=== PATIENT | female | born 1965 | race American Indian/Alaskan Native ===

== ENCOUNTER 2016-10-22 17:10 | Inpatient (IN) | payer BC ==
[2016-10-22 17:17] VITALS: BMI 30.4
[2016-10-22] MEDS ORDERED: Sodium Chloride 0.9% 1,000 ML IV STA (17:38)
[2016-10-22] MEDS ORDERED: Morphine 4 mg/ml ISec IVP STA (17:38)
[2016-10-22 18:14] LABS: ADD MANUAL DIFF? NO
--- NOTE | 2016-10-22 18:26 | ED PDOC ---
Arrival/HPI - General Chief Complaint: Abdominal Pain Time Seen by Provider: 10/22/16 17:22 Historian: Patient - History of Present Illness Narrative History of Present Illness (Text): 10/22/16 18:21 51yo female with PMHx of Diabetes and migraine headache referred to ED by her PMD for 2days history of LLQ abdominal pain associated nausea and constipation. States pain started yesterday. Her last BM was 3days ago. Saw her PMD today and was referred to ED. She reports temp of 101 while she was at her PMD's office this afternoon. Did not take any medication for pain. Denies melena, hematemesis , vomiting, diarrhea, chest pain, urinary symptoms, sick contact. Past Medical History - Provider Review Nursing Documentation Reviewed: Yes - Infectious Disease Hx of Infectious Diseases: None - Reproductive Menopause: Yes - Cardiac Hx Cardiac Disorders: Yes Hx Hypertension: Yes - Pulmonary Hx Respiratory Disorders: No - Neurological Hx Neurological Disorder: No - HEENT Hx HEENT Disorder: No - Renal Hx Renal Disorder: No - Endocrine/Metabolic Hx Endocrine Disorders: Yes Hx Diabetes Mellitus Type 1: Yes - Hematological/Oncological Hx Blood Disorders: No - Integumentary Hx Dermatological Disorder: No - Musculoskeletal/Rheumatological Hx Musculoskeletal Disorders: No - Gastrointestinal Hx Gastrointestinal Disorders: No - Genitourinary/Gynecological Hx Genitourinary Disorders: No - Psychiatric Hx Psychophysiologic Disorder: No Hx Substance Use: No - Surgical History Hx Cholecystectomy: Yes - Anesthesia Hx Anesthesia: Yes Hx Anesthesia Reactions: No Family/Social History - Physician Review Nursing Documentation Reviewed: Yes Family/Social History: Unknown Family HX Smoking Status: Never Smoked Hx Alcohol Use: No Hx Substance Use: No Hx Substance Use Treatment: No Allergies/Home Meds Allergies/Adverse Reactions: Allergies No Known Allergies Allergy (Verified 10/22/16 17:16) Home Medications: Home Meds Medication Instructions Recorded Confirmed Losartan [Cozaar] 100 mg PO DAILY 10/22/16 10/22/16 MetFORMIN [glucoPHAGE] 1,000 mg PO DAILY 10/22/16 10/22/16 Review of Systems - Physician Review All systems were reviewed & negative as marked: Yes - Review of Systems Constitutional: Normal Eyes: Normal ENT: Normal Respiratory: Normal Cardiovascular: Normal Gastrointestinal: Abdominal Pain, Constipation, Nausea. absent: Diarrhea, Vomiting, Hematochezia, Hematemesis Genitourinary Female: Normal Musculoskeletal: Normal Skin: Normal Neurological: Normal Endocrine: Normal Hemo/Lymphatic: Normal Psychiatric: Normal Physical Exam Vital Signs Reviewed: Yes Vital Signs Temp Pulse Resp BP Pulse Ox 10/22/16 23:01 99.5 F 100 H 18 134/81 98 10/22/16 17:20 98.9 F 110 H 20 120/84 100 Temperature: Afebrile Blood Pressure: Normal Pulse: Tachycardic Respiratory Rate: Normal Appearance: Positive for: Well-Appearing, Non-Toxic, Comfortable Pain Distress: None Mental Status: Positive for: Alert and Oriented X 3 - Systems Exam Head: Present: Atraumatic, Normocephalic Pupils: Present: PERRL Extroacular Muscles: Present: EOMI Conjunctiva: Present: Normal Mouth: Present: Moist Mucous Membranes Neck: Present: Normal Range of Motion Respiratory/Chest: Present: Clear to Auscultation, Good Air Exchange. No: Respiratory Distress, Accessory Muscle Use Cardiovascular: Present: Regular Rate and Rhythm, Normal S1, S2. No: Murmurs Abdomen: Present: Tenderness (LLQ abdominal tenderness), Normal Bowel Sounds, Guarding, Other (soft). No: Distention, Peritoneal Signs, Rebound, McBurney's Point Tender, Rovsing's Sign Present Back: Present: Normal Inspection Upper Extremity: Present: Normal Inspection. No: Cyanosis, Edema Lower Extremity: Present: Normal Inspection. No: Edema Neurological: Present: GCS=15, CN II-XII Intact, Speech Normal Skin: Present: Warm, Dry, Normal Color. No: Rashes Psychiatric: Present: Alert, Oriented x 3, Normal Insight, Normal Concentration Medical Decision Making ED Course and Treatment: 10/23/16 00:39 Pt was seen in ED for stated history. She was hemodynamically stable in ED. Her pain was controlled in ED. Lab was unremarkable Abdominal CT IMPRESSION: 1. Findings compatible with acute diverticulitis of descending colon with equivocal localized perforation. Recommend endoscopy following resolution. Zosyn and flagyl was ordered. Case was DW Dr. Osei who was covering Dr. zhou and he accepted pt. He requested [employer] baby registry sales consultant to be consult. The Resident was notified founder president and ceo was also notified. Result and plan and was DW the pt and she agreed - Lab Interpretations Lab Results: 10/22/16 18:05 10/22/16 18:05 Lab Results 10/22/16 19:29: Urine Color Yellow, Urine Appearance Sl cloudy, Urine pH 7.0, Ur Specific [place] <= 1.005, Urine Protein Negative, Urine Glucose (UA) 100 H, Urine Ketones 15 H, Urine Blood Negative, Urine Nitrate Negative, Urine Bilirubin Negative, Urine Urobilinogen 0.2, Ur Leukocyte Esterase Trace H, Urine RBC 0 - 2, Urine WBC 1 - 3, Ur Epithelial Cells 1 - 3 10/22/16 18:05: Sodium 139, Potassium 4.4, Chloride 101, Carbon Dioxide 29, Anion Gap 13, BUN 8, Creatinine 0.6, Est GFR ( Amer) > 60, Est GFR (Non- Af Amer) > 60, Random Glucose 195 H, Calcium 9.7, Total Bilirubin 0.8, AST 22, ALT 30, Alkaline Phosphatase 103, Total Protein 7.7, Albumin 4.3, Globulin 3.4, Albumin/Globulin Ratio 1.3, Lipase 51 10/22/16 18:05: PT 11.3, INR 1.05, APTT 28.8 10/22/16 18:05: WBC 8.7 D, RBC 4.58, Hgb 13.5, Hct 39.2, MCV 85.6, MCH 29.5, MCHC 34.4, RDW 12.4, Plt Count 277, MPV 9.8, Gran % 65.9, Lymph % (Auto) 27.7, [place] % (Auto) 5.9, Eos % (Auto) 0.2 L, Baso % (Auto) 0.3, Gran # 5.75, Lymph # 2.4, [place] # 0.5, Eos # 0.0, Baso # 0.03 10/22/16 17:55: POC Glucose (mg/dL) 308 H - RAD Interpretation Radiology Orders: 10/22/16 17:38 ABD & PELVIS W/O PO OR IV CONT [CT] Stat - Medication Orders Current Medication Orders: Famotidine (Pepcid) 20 mg IVP DAILY NAINA Hydromorphone HCl (Dilaudid) 1 mg IVP Q4H PRN PRN Reason: Pain, moderate (4-7) Sodium Chloride (Sodium Chloride 0.9%) 1,000 mls @ 150 mls/hr IV .Q6H40M NAINA Last Admin: 10/22/16 23:34 Dose: 150 mls/hr Metronidazole (Flagyl) 500 mg in 100 mls @ 100 mls/hr IVPB Q8 NAINA PRN Reason: Protocol Ceftriaxone Sodium (Rocephin 2 Gm Ivpb) 2 gm in 100 mls @ 100 mls/hr IVPB DAILY NAINA PRN Reason: Protocol Insulin Human Regular (Humulin R Low) 0 units SC ACHS NAINA PRN Reason: Protocol Losartan Potassium (Cozaar) 100 mg PO DAILY [facility] Discontinued Medications Famotidine (Pepcid) 20 mg IVP STAT STA Stop: 10/22/16 17:39 Last Admin: 10/22/16 18:09 Dose: 20 mg Sodium Chloride (Sodium Chloride 0.9%) 1,000 mls @ 1,000 mls/hr IV .Q1H STA Stop: 10/22/16 18:37 Last Admin: 10/22/16 18:09 Dose: 1,000 mls/hr Metronidazole (Flagyl) 500 mg in 100 mls @ 100 mls/hr IVPB STAT STA PRN Reason: Protocol Stop: 10/22/16 22:43 Last Admin: 10/22/16 23:33 Dose: 100 mls/hr Piperacillin Sod/Tazobactam Sod (Zosyn 3.375 In Ns 100ml) 100 mls @ 200 mls/hr IVPB STAT STA PRN Reason: Protocol Stop: 10/22/16 22:12 Last Admin: 10/22/16 22:12 Dose: 200 mls/hr Sodium Chloride (Sodium Chloride 0.9%) 1,000 mls @ 100 mls/hr IV .Q10H [facility] Morphine Sulfate (Morphine) 4 mg IVP STAT STA Stop: 10/22/16 17:39 Last Admin: 10/22/16 18:09 Dose: 4 mg Re-Assess: [facility] Pain Assessment Document 10/22/16 19:09 [place] (Rec: 10/22/16 22:13 [id number]) Pain Reassessment Is this a pain reassessment? Yes Sleep Is patient sleeping during reassessment? No Presence of Pain Presence of Pain No Pain Scale Used Pain Scale Used Numeric Ondansetron HCl (Zofran Inj) 4 mg IVP STAT STA Stop: 10/22/16 17:39 Last Admin: 10/22/16 18:09 Dose: 4 mg Disposition/Present on Arrival - Present on Arrival Any Indicators Present on Arrival: No History of DVT/PE: No History of Uncontrolled Diabetes: No Urinary Catheter: No History of Decub. Ulcer: No History Surgical Site Infection Following: None - Disposition Have Diagnosis and Disposition been Completed?: Yes Diagnosis: Diverticulitis Disposition: HOSPITALIZED Disposition Time: 21:30 Patient Problems: Current Active Problems Problem Status Onset Diverticulitis Acute Condition: FAIR
[2016-10-22 18:33] LABS: BASO % 0.3 % (0.0-3.0); EOS % 0.2 % (1.5-5.0); GRAN # 5.75 (1.4-6.5); GRAN % 65.9 % (50.0-68.0); HEMATOCRIT 39.2 % (36.0-48.0); LYMPH % 27.7 % (22.0-35.0); MEAN CELL VOLUME 85.6 fL (80.0-105.0); MEAN CORPUSCULAR HEMOGLOBIN 29.5 pg (25.0-35.0); MEAN CORPUSCULAR HGB CONC 34.4 g/dl (31.0-37.0); MEAN PLATELET VOLUME 9.8 fl (7.0-11.0); MONO % 5.9 % (1.0-6.0); PLATELET COUNT 277 10^3/uL (120.0-450.0); RED CELL DISTRIBUTION WIDTH 12.4 % (11.5-14.5); WHITE BLOOD COUNT 8.7 10^3/ul (4.5-11.0)
[2016-10-22 18:34] LABS: BASO # 0.03 K/mm3 (0.0-2.0); LYMPH # 2.4 (1.2-3.4); MONO # 0.5 (0.1-0.6)
[2016-10-22 18:37] LABS: ALB/GLOB RATIO 1.3 (1.1-1.8); ALKALINE PHOSPHATASE 103 U/L (38-133); ALT/SGPT 30 U/L (7-56); AST/SGOT 22 U/L (15-39); BILIRUBIN,TOTAL 0.8 mg/dL (0.2-1.3); BLOOD UREA NITROGEN 8 mg/dL (7-21); CALCIUM 9.7 mg/dL (8.4-10.5); CARBON DIOXIDE 29 mmol/L (21-33); CHLORIDE 101 mmol/L (98-107); GFR AFRICAN-AMERICAN > 60; GLUCOSE,RANDOM 195 mg/dL (70-110); LIPASE 51 U/L (23-300); POTASSIUM 4.4 mmol/L (3.6-5.0); SODIUM 139 mmol/L (132-148); TOTAL PROTEIN 7.7 g/dL (5.8-8.3)
[2016-10-22 18:46] LABS: INR 1.05 (0.93-1.08); PARTIAL THROMBOPLASTIN TIME 28.8 Seconds (23.7-30.8)
[2016-10-22 19:40] LABS: URINE BILIRUBIN NEGATIVE (NEGATIVE); URINE BLOOD NEGATIVE (NEGATIVE); URINE GLUCOSE (UA) 100 mg/dL (NEGATIVE); URINE KETONE 15 mg/dL (NEGATIVE); URINE LEUKOCYTE ESTERASE TRACE Leu/uL (NEGATIVE); URINE PROTEIN NEGATIVE mg/dL (<30 mg/dL); URINE UROBILINOGEN 0.2 E.U./dL (<1 E.U./dL)
[2016-10-22 19:44] LABS: URINE APPEARANCE SL CLOUDY (CLEAR); URINE COLOR YELLOW (YELLOW)
[2016-10-22 20:13] LABS: URINE RBC 0 - 2 /hpf (0-2)
--- NOTE | 2016-10-22 21:35 | CT ---
EXAM: CT Abdomen and Pelvis Without Intravenous Contrast CLINICAL HISTORY: 51 years old, female; Pain; Abdominal pain; Acute TECHNIQUE: Axial computed tomography images of the abdomen and pelvis without intravenous contrast. This CT exam was performed using one or more of the following dose reduction techniques: automated exposure control, adjustment of the mA and/or kV according to patient size, and/or use of iterative reconstruction technique. Coronal and sagittal reformatted images were created and reviewed. COMPARISON: CT - ABD PELVIS W/O PO OR IV CONT 05/15/2015 11:33:32 PM FINDINGS: Limitations: Lack of intravenous contrast. Lower thorax: No acute findings. ABDOMEN: Liver: Unremarkable. Gallbladder and bile ducts: Cholecystectomy. No ductal dilation. Pancreas: Unremarkable. No ductal dilation. Spleen: No splenomegaly. Adrenals: No mass. Kidneys and ureters: No renal calculi. No hydronephrosis. Stomach and bowel: Few scattered diverticula within colon. Mild mural thickening of short segment of descending colon. Moderate stranding within adjacent fat. Few tiny foci of air within or immediately adjacent to inflamed diverticulum(axial image 103-104). No obstruction. Appendix: Normal caliber. No inflammation. PELVIS: Bladder: Unremarkable. No stones. Reproductive: Unremarkable as visualized. ABDOMEN and PELVIS: Intraperitoneal space: Trace free fluid within pelvis. See above. Bones/joints: No acute fracture. Soft tissues: Unremarkable. Vasculature: Mild varices within LEFT upper quadrant. No abdominal aortic aneurysm. Lymph nodes: No pathologically enlarged lymph nodes. IMPRESSION: 1. Findings compatible with acute diverticulitis of descending colon with equivocal localized perforation. Recommend endoscopy following resolution. 2. Incidental/non-acute findings are described above.
[2016-10-22] MEDS ORDERED: Piperacillin/Tazobact 3.375 gm 100 ML IVPB STA (21:43)
[2016-10-22] MEDS ORDERED: metroNIDAZOLE IV 500 mg/100 ml 500 MG/100 ML BAG IVPB STA (21:44)
--- NOTE | 2016-10-22 22:39 | CP.PCM.CON ---
History of Present Illness - History of Present Illness History of Present Illness: General Surgery Dr. Jeffries HPI: 51 y/o F w/ PMHx of HTN, DM2 presents to the ED w/ c/o LLQ abd pain. Pt states pain began yesterday afternoon after spending the day in the car. Pt reports feeling like she was punched in the stomach when getting out the car. Pain worsened throughout the night, was unable to get comfortable. Pt saw PMD today and was told to come to the ED for evaluation. Pt reports subjective fever and states temp was elevated in PMD office. Nothing makes pain better or worse. Pain has improved since arriving in ED, currently 10/09. Pt states last BM was Friday and reports normally going daily or BID. denies N/V, D/C, melena, or hematochezia. (+) Headache. (-) CP, SOB, numbness/tingling, weakness, easy bruising/bleeding. Pt has not yet had a colonoscopy. PMHx: see above Meds: metformin 1000mg daily NKDA PSHx: [place] SHx: denies tobacco, EtOH, drugs FHx: non-contributory Review of Systems - Review of Systems All systems: reviewed and no additional remarkable complaints except (see HPI) Past Patient History - Infectious Disease Hx of Infectious Diseases: None - Past Social History Smoking Status: Never Smoked - CARDIAC Hx Cardiac Disorders: Yes Hx Hypertension: Yes - PULMONARY Hx Respiratory Disorders: No - NEUROLOGICAL Hx Neurological Disorder: No - HEENT Hx HEENT Problems: No - RENAL Hx Chronic Kidney Disease: No - ENDOCRINE/METABOLIC Hx Endocrine Disorders: Yes Hx Diabetes Mellitus Type 1: Yes - HEMATOLOGICAL/ONCOLOGICAL Hx Blood Disorders: No - INTEGUMENTARY Hx Dermatological Problems: No - MUSCULOSKELETAL/RHEUMATOLOGICAL Hx Musculoskeletal Disorders: No - GASTROINTESTINAL Hx Gastrointestinal Disorders: No - GENITOURINARY/GYNECOLOGICAL Hx Genitourinary Disorders: No - PSYCHIATRIC Hx Psychophysiologic Disorder: No Hx Substance Use: No - SURGICAL HISTORY Hx Cholecystectomy: Yes - ANESTHESIA Hx Anesthesia: Yes Hx Anesthesia Reactions: No Meds Allergies/Adverse Reactions: Allergies Allergy/AdvReac Type Severity Reaction Status Date / Time No Known Allergies Allergy Verified 10/22/16 17:16 - Medications Medications: Current Medications Metronidazole (Flagyl) 500 mg in 100 mls @ 100 mls/hr IVPB STAT STA PRN Reason: Protocol Stop: 10/22/16 22:43 Physical Exam - Constitutional Appears: Non-toxic, No Acute Distress - Head Exam Head Exam: NORMAL INSPECTION - Eye Exam Eye Exam: Normal appearance - ENT Exam ENT Exam: Mucous Membranes Moist - Respiratory Exam Respiratory Exam: NORMAL BREATHING PATTERN. absent: Accessory Muscle Use, Respiratory Distress - Cardiovascular Exam Cardiovascular Exam: Tachycardia, REGULAR RHYTHM - GI/Abdominal Exam GI & Abdominal Exam: Distended (minimal ), Soft, Tenderness (LUQ >LLQ TTP). absent: Guarding, Rebound, Rigid - Extremities Exam Extremities exam: Positive for: normal inspection. Negative for: pedal edema - Neurological Exam Neurological exam: Alert, Oriented x3 - Psychiatric Exam Psychiatric exam: Normal Affect, Normal Mood - Skin Skin Exam: Dry, Intact, Normal Color, Warm Results - Vital Signs Recent Vital Signs: Last Vital Signs Temp 98.9 F 10/22/16 17:20 Pulse 110 H 10/22/16 17:20 Resp 20 10/22/16 17:20 BP 120/84 10/22/16 17:20 Pulse Ox 100 10/22/16 17:20 - Labs Result Diagrams: 10/22/16 18:05 10/22/16 18:05 - Imaging and Cardiology CT scan - abdomen Status: Image reviewed by me, Report reviewed by me Assessment & Plan - Assessment and Plan (Free Text) Assessment: 51 y/o F w/ acute diverticulitis w/ microperf - NPO, IVF - IV Abx - Rocephin/Flagyl - pain management - anti-emetics - recommend GI consult - serial abd exams Pt discussed w/ Dr. Nesha Garcia DO PGY1
[2016-10-22] MEDS ORDERED: Sodium Chloride 0.9% 1,000 ML IV SCH (23:00)
[2016-10-22] MEDS ORDERED: Morphine 2 mg/ml ISec IVP PRN (23:05)
[2016-10-22] MEDS ORDERED: Morphine 4 mg/ml ISec IVP PRN (23:30)
[2016-10-22] MEDS: Sodium Chloride 0.9% 1,000 ML IV SCH (23:34)
[2016-10-23] MEDS ORDERED: Piperacillin/Tazobact 3.375 gm 100 ML IVPB SCH
[2016-10-23] MEDS ORDERED: HYDROmorphone 1 mg/ml ISec IVP PRN (00:01)
--- NOTE | 2016-10-23 03:17 | CP.PCM.HP ---
<Brea Bales - Last Filed: 10/23/16 07:11> History of Present Illness - History of Present Illness History of Present Illness: PGY-1 H&P 51 yo female with PMH of HTN, DM, migraine headaches presented to ED with history of LLQ abdominal pain adn nausea. Patient states that yesterday she felt a sharp, sudden pain in her LLQ. She states that the pain was constant and she was not able to find a comfortable position. She went to her PMDs office, there she was told that she had fever of 101 and advised to go to the hospital. Patient states that this has never happened to her before. Patient states she is constipated, her last BM was 3 days ago. She denies any nausea or vomiting. Patient also reports headache. She denies weight loss, chest pain, sob, cough, urinary symptoms, melena. Denies previous colonoscopy or EGD. PMH: HTN, DM, migraine headaches PSH: cholecystectomy social hx: denies smoking, alcohol use, illicit drug use family hx: denies allergy: NKDA Home Meds: metformin and losartin PMD: Sweeti Bryan Present on Admission - Present on Admission Any Indicators Present on Admission: No Review of Systems - Constitutional Constitutional: Headache. absent: Fever, Weight Gain, Weight Loss - EENT Eyes: absent: Change in Vision Nose/Mouth/Throat: absent: Nasal Congestion, Sore Throat - Cardiovascular Cardiovascular: absent: Chest Pain, Dyspnea, Palpitations - Respiratory Respiratory: absent: Cough, Dyspnea - Gastrointestinal Gastrointestinal: Abdominal Pain (LLQ), Constipation. absent: Diarrhea, Nausea , Vomiting - Genitourinary Genitourinary: absent: Difficulty Urinating, Dysuria - Musculoskeletal Musculoskeletal: absent: Arthralgias, Muscle Weakness, Myalgias, Numbness, Tingling - Integumentary Integumentary: absent: Rash, Skin Ulcer, Wounds - Neurological Neurological: absent: Dizziness, Numbness, Tingling, Weakness - Hematologic/Lymphatic Hematologic: absent: Easy Bleeding, Easy Bruising Past Patient History - Infectious Disease Hx of Infectious Diseases: None - Past Social History Smoking Status: Never Smoked Alcohol: None Drugs: Denies - CARDIAC Hx Cardiac Disorders: Yes Hx Hypertension: Yes - PULMONARY Hx Respiratory Disorders: No - NEUROLOGICAL Hx Neurological Disorder: No - HEENT Hx HEENT Problems: No - RENAL Hx Chronic Kidney Disease: No - ENDOCRINE/METABOLIC Hx Endocrine Disorders: Yes Hx Diabetes Mellitus Type 1: Yes - HEMATOLOGICAL/ONCOLOGICAL Hx Blood Disorders: No - INTEGUMENTARY Hx Dermatological Problems: No - MUSCULOSKELETAL/RHEUMATOLOGICAL Hx Musculoskeletal Disorders: No - GASTROINTESTINAL Hx Gastrointestinal Disorders: No - GENITOURINARY/GYNECOLOGICAL Hx Genitourinary Disorders: No - PSYCHIATRIC Hx Psychophysiologic Disorder: No Hx Substance Use: No - SURGICAL HISTORY Hx Cholecystectomy: Yes - ANESTHESIA Hx Anesthesia: Yes Hx Anesthesia Reactions: No Meds Allergies/Adverse Reactions: Allergies Allergy/AdvReac Type Severity Reaction Status Date / Time No Known Allergies Allergy Verified 10/22/16 17:16 Physical Exam - Constitutional Appears: Well, No Acute Distress - Head Exam Head Exam: ATRAUMATIC, NORMOCEPHALIC - Eye Exam Eye Exam: Normal appearance - ENT Exam ENT Exam: Mucous Membranes Moist - Respiratory Exam Respiratory Exam: Clear to Auscultation Bilateral, NORMAL BREATHING PATTERN. absent: Rhonchi, Wheezes, Respiratory Distress - Cardiovascular Exam Cardiovascular Exam: REGULAR RHYTHM, +S1, +S2. absent: Tachycardia, Diastolic murmur, Systolic Murmur - GI/Abdominal Exam GI & Abdominal Exam: Normal Bowel Sounds, Soft, Tenderness (LLQ). absent: Distended, Firm, Guarding, Hernia - Extremities Exam Extremities exam: Positive for: normal inspection. Negative for: pedal edema - Neurological Exam Neurological exam: Alert, Oriented x3 - Skin Skin Exam: Dry, Intact, Normal Color, Warm Results - Vital Signs Recent Vital Signs: Last Vital Signs Temp 99.5 F 10/22/16 23:01 Pulse 100 H 10/22/16 23:01 Resp 18 10/22/16 23:01 BP 134/81 10/22/16 23:01 Pulse Ox 98 10/22/16 23:01 - Labs Result Diagrams: 10/22/16 18:05 10/22/16 18:05 Labs: Laboratory Results - last 24 hr 10/22/16 23:31 POC Glucose (mg/dL) 222 H Assessment & Plan - Assessment and Plan (Free Text) Assessment: 51 yo female with PMH of HTN, DM, migraine headaches presented to ED with diverticulitis and localized perforation. CT abd showed acute diverticulitis of descending colon with localized perforation. Plan: 1. acute diverticulitis with perforations - CT abd showed acute diverticulitis of descending colon with localized perforation - surgery consulted, Dr. Plummer - GI consulted, Dr. Crouch - NPO - zosyn and flagyl given in ED - cont Rocephin and flagyl - IVF, ns @150 - blood and urine cx - pain management 2. HTN - cont home medication losartan - cont to monitor 3. DM - hold metformin - ISSS- low - fingersticks ACHS ppx GI- pepcid DVT- SCDs <Chepe Osei - Last Filed: 11/13/16 15:01> Results - Vital Signs Recent Vital Signs: Last Vital Signs Temp 97.6 F 10/24/16 08:00 Pulse 90 10/24/16 08:00 Resp 18 10/24/16 08:00 BP 112/73 10/24/16 08:00 Pulse Ox 99 10/24/16 08:00 - Labs Result Diagrams: 10/24/16 07:30 10/24/16 07:30 Attending/Attestation - Attestation I have personally seen and examined this patient.: Yes I have fully participated in the care of the patient.: Yes I have reviewed all pertinent clinical information: Yes Notes (Text): 11/13/16 15:01 Medical record note made by the resident after discussion with my direction and input after the patient was personally seen and examined by me. I have reviewed the chart and agree that the record accurately reflects by personal performance of the history, physical exam, data review, and medical decision-making, in the course for the patient. I have also personally directed the plan of care.
[2016-10-23] MEDS: metroNIDAZOLE IV 500 mg/100 ml 500 MG/100 ML BAG IVPB SCH ×3 (05:56→22:20)
[2016-10-23] MEDS: Sodium Chloride 0.9% 1,000 ML IV SCH ×2 (05:57→18:50)
[2016-10-23 08:22] LABS: ADD MANUAL DIFF? NO
[2016-10-23 08:28] LABS: BASO # 0.02 K/mm3 (0.0-2.0); BASO % 0.3 % (0.0-3.0); EOS % 0.6 % (1.5-5.0); GRAN # 4.38 (1.4-6.5); GRAN % 67.3 % (50.0-68.0); HEMATOCRIT 37.6 % (36.0-48.0); LYMPH # 1.7 (1.2-3.4); LYMPH % 26.4 % (22.0-35.0); MEAN CELL VOLUME 85.6 fL (80.0-105.0); MEAN CORPUSCULAR HEMOGLOBIN 28.9 pg (25.0-35.0); MEAN CORPUSCULAR HGB CONC 33.8 g/dl (31.0-37.0); MEAN PLATELET VOLUME 9.4 fl (7.0-11.0); MONO # 0.4 (0.1-0.6); MONO % 5.4 % (1.0-6.0); PLATELET COUNT 246 10^3/uL (120.0-450.0); RED CELL DISTRIBUTION WIDTH 12.4 % (11.5-14.5); WHITE BLOOD COUNT 6.5 10^3/ul (4.5-11.0)
[2016-10-23 08:45] LABS: ALB/GLOB RATIO 1.2 (1.1-1.8); ALKALINE PHOSPHATASE 165 U/L (38-133); ALT/SGPT 529 U/L (7-56); AST/SGOT 429 U/L (15-39); BILIRUBIN,TOTAL 0.9 mg/dL (0.2-1.3); BLOOD UREA NITROGEN 7 mg/dL (7-21); CARBON DIOXIDE 26 mmol/L (21-33); CHLORIDE 104 mmol/L (95-110); GFR AFRICAN-AMERICAN > 60; GLUCOSE,RANDOM 177 mg/dL (70-110); POTASSIUM 3.9 mmol/L (3.6-5.0); SODIUM 138 mmol/L (132-148); TOTAL PROTEIN 6.8 g/dL (5.8-8.3)
[2016-10-23] MEDS: Insulin Reg-LOW-Coverage SC SCH ×3 (08:58→19:15)
[2016-10-23] MEDS ORDERED: cefTRIAXone 2 GM IN NS 2 GM/100 ML BAG IVPB SCH (10:00)
[2016-10-23] MEDS ORDERED: cefTRIAXone 1 gm 1 GM/100 ML BAG IVPB SCH (10:00)
--- NOTE | 2016-10-23 10:05 | CARD ---
APPROVED REPORT EKG Measurement Heart [id number] <Conclusion> Sinus rhythm with premature supraventricular complexes Otherwise normal ECG
--- NOTE | 2016-10-23 10:13 | CP.PCM.CON ---
<Lesly Davila - Last Filed: 10/23/16 10:10> History of Present Illness - History of Present Illness History of Present Illness: GI consult for Dr. Crouch 1 yo female with PMH of HTN, DM, migraine headaches presented to ED with history of LLQ abdominal pain. Patient states that yesterday she felt a sharp, sudden pain in her LLQ. She states that the pain was constant and she was not able to find a comfortable position. She went to her PMDs office, there she was told that she had fever of 101 and advised to go to the hospital. Patient states that this has never happened to her before. Patient states she is constipated, her last BM was 3 days ago. She denies any nausea or vomiting. Patient also reports headache. She denies diarrhea, weight loss, chest pain, sob , cough, urinary symptoms, melena, hematemesis, hematochezia. Denies previous colonoscopy or EGD. CT shows Descending colon diverticulitits and LFT today was elevated PMH: HTN, DM, migraine headaches PSH: cholecystectomy social hx: denies smoking, alcohol use, illicit drug use family hx: denies allergy: NKDA Home Meds: metformin and losartin PMD: Arnaldo Adams Review of Systems - Review of Systems Review of Systems: See HPI Past Patient History - Infectious Disease Hx of Infectious Diseases: None - Past Social History Smoking Status: Never Smoked Alcohol: None Drugs: Denies - CARDIAC Hx Cardiac Disorders: Yes Hx Hypertension: Yes - PULMONARY Hx Respiratory Disorders: No - NEUROLOGICAL Hx Neurological Disorder: No - HEENT Hx HEENT Problems: No - RENAL Hx Chronic Kidney Disease: No - ENDOCRINE/METABOLIC Hx Endocrine Disorders: Yes Hx Diabetes Mellitus Type 1: Yes - HEMATOLOGICAL/ONCOLOGICAL Hx Blood Disorders: No - INTEGUMENTARY Hx Dermatological Problems: No - MUSCULOSKELETAL/RHEUMATOLOGICAL Hx Musculoskeletal Disorders: No - GASTROINTESTINAL Hx Gastrointestinal Disorders: No - GENITOURINARY/GYNECOLOGICAL Hx Genitourinary Disorders: No - PSYCHIATRIC Hx Psychophysiologic Disorder: No Hx Substance Use: No - SURGICAL HISTORY Hx Cholecystectomy: Yes - ANESTHESIA Hx Anesthesia: Yes Hx Anesthesia Reactions: No Meds Home Medications: Home Medication List Medication Instructions Recorded Confirmed Type Ciprofloxacin [Cipro] 500 mg PO Q12 #14 tab 10/24/16 Rx metroNIDAZOLE [Flagyl] 500 mg PO Q8 #21 tab 10/24/16 Rx Allergies/Adverse Reactions: Allergies Allergy/AdvReac Type Severity Reaction Status Date / Time No Known Allergies Allergy Verified 10/22/16 17:16 - Medications Medications: Current Medications Famotidine (Pepcid) 20 mg IVP DAILY [facility] Hydromorphone HCl (Dilaudid) 1 mg IVP Q4H PRN PRN Reason: Pain, moderate (4-7) Sodium Chloride (Sodium Chloride 0.9%) 1,000 mls @ 150 mls/hr IV .Q6H40M [facility] Last Admin: 10/23/16 05:57 Dose: 150 mls/hr Metronidazole (Flagyl) 500 mg in 100 mls @ 100 mls/hr IVPB Q8 [facility] PRN Reason: Protocol Last Admin: 10/23/16 05:56 Dose: 100 mls/hr Ceftriaxone Sodium (Rocephin 1 Gram Ivpb) 1 gm in 100 mls @ 100 mls/hr IVPB DAILY [facility] PRN Reason: Protocol Insulin Human Regular (Humulin R Low) 0 units SC ACHS [facility] PRN Reason: Protocol Last Admin: 10/23/16 08:58 Dose: Not Given Losartan Potassium (Cozaar) 100 mg PO DAILY [facility] Physical Exam - Constitutional Appears: No Acute Distress - Head Exam Head Exam: ATRAUMATIC, NORMAL INSPECTION, NORMOCEPHALIC - Eye Exam Eye Exam: EOMI, Normal appearance, PERRL Pupil Exam: NORMAL ACCOMODATION, PERRL - ENT Exam ENT Exam: Mucous Membranes Moist, Normal Exam - Neck Exam Neck exam: Positive for: Normal Inspection - Respiratory Exam Respiratory Exam: Clear to Auscultation Bilateral, NORMAL BREATHING PATTERN - Cardiovascular Exam Cardiovascular Exam: REGULAR RHYTHM - GI/Abdominal Exam GI & Abdominal Exam: Guarding, Tenderness. absent: Distended, Firm, Hernia, Mass, Rebound, Rigid, Soft Additional comments: LLQ TTP - Extremities Exam Extremities exam: Positive for: normal inspection - Back Exam Back exam: NORMAL INSPECTION - Neurological Exam Neurological exam: Alert, CN II-XII Intact, Normal Gait, Oriented x3, Reflexes Normal - Psychiatric Exam Psychiatric exam: Normal Affect, Normal Mood - Skin Skin Exam: Dry, Intact, Normal Color, Warm Results - Vital Signs Recent Vital Signs: Last Vital Signs Temp 98.8 F 10/23/16 09:13 Pulse 96 H 10/23/16 09:13 Resp 20 10/23/16 09:13 BP 127/81 10/23/16 09:13 Pulse Ox 97 10/23/16 09:13 - Labs Result Diagrams: 10/23/16 08:10 10/23/16 08:10 Labs: Laboratory Results - last 24 hr 10/22/16 10/23/16 10/23/16 23:31 07:25 08:10 WBC 6.5 D RBC 4.39 Hgb 12.7 Hct 37.6 MCV 85.6 MCH 28.9 MCHC 33.8 RDW 12.4 Plt Count 246 MPV 9.4 Gran % 67.3 Lymph % (Auto) 26.4 Haakon % (Auto) 5.4 Eos % (Auto) 0.6 L Baso % (Auto) 0.3 Gran # 4.38 Lymph # 1.7 Haakon # 0.4 Eos # 0.0 Baso # 0.02 Sodium Potassium Chloride Carbon Dioxide Anion Gap BUN Creatinine Est GFR ( Amer) Est GFR (Non-Af Amer) POC Glucose (mg/dL) 222 H 167 H Random Glucose Calcium Total Bilirubin AST ALT Alkaline Phosphatase Total Protein Albumin Globulin Albumin/Globulin Ratio 10/23/16 08:10 WBC RBC Hgb Hct MCV MCH MCHC RDW Plt Count MPV Gran % Lymph % (Auto) Haakon % (Auto) Eos % (Auto) Baso % (Auto) Gran # Lymph # Haakon # Eos # Baso # Sodium 138 Potassium 3.9 Chloride 104 Carbon Dioxide 26 Anion Gap 12 BUN 7 Creatinine 0.6 Est GFR ( Amer) > 60 Est GFR (Non-Af Amer) > 60 POC Glucose (mg/dL) Random Glucose 177 H Calcium 9.0 Total Bilirubin 0.9 AST 429 H ALT 529 H Alkaline Phosphatase 165 H Total Protein 6.8 Albumin 3.7 Globulin 3.0 Albumin/Globulin Ratio 1.2 Assessment & Plan - Assessment and Plan (Free Text) Assessment: Sigmoid/Descending colon Diverticulitis Elevated LFT CT: Acute descending colon diverticulitis -F/U [facility] US for elevated LFT -NPO -IVF -Pain control -ABX: Rocephine 1mg, Flagyl -Monitor LFT, CBC , VS -DW Dr. Crouch <WillaKoshaun V - Last Filed: 12/11/16 14:48> Results - Vital Signs Recent Vital Signs: Last Vital Signs Temp 97.6 F 10/24/16 08:00 Pulse 90 10/24/16 08:00 Resp 18 10/24/16 08:00 BP 112/73 10/24/16 08:00 Pulse Ox 99 10/24/16 08:00 - Labs Result Diagrams: 10/24/16 07:30 10/24/16 07:30 Assessment & Plan - Assessment and Plan (Free Text) Assessment: See dictated addendum
--- NOTE | 2016-10-23 10:42 | RAD ---
HISTORY: r/o free air COMPARISON: No prior. FINDINGS: BOWEL: Normal. No obstruction. No free air. BONES: Normal. OTHER FINDINGS: None. IMPRESSION: No active disease.
--- NOTE | 2016-10-23 11:31 | US ---
HISTORY: Elevated LFT COMPARISON: CT of the abdomen and pelvis without contrast performed 10/22/16 no prior ultrasound available for direct comparison. TECHNIQUE: Sonographic evaluation of the abdomen. FINDINGS: LIVER: Measures 13.5 cm in sagittal dimension and appears grossly unremarkable. No focal hepatic mass identified. The main portal vein appears patent with normal directional flow. No intrahepatic bile duct dilatation. GALLBLADDER: Cholecystectomy. COMMON BILE DUCT: Measures 4 mm. PANCREAS: Not well visualized. RIGHT KIDNEY: Measures 11.3 x 5.3 x 5.3 cm. No obstructing calculus or hydronephrosis identified. LEFT KIDNEY: Measures 11.7 x 6.1 x 5.4 cm. No obstructing calculus or hydronephrosis identified. SPLEEN: Measures approximately 8.8 cm. AORTA: Limited views appear unremarkable. IVC: Limited views appear unremarkable. OTHER FINDINGS: None. IMPRESSION: Cholecystectomy.
--- NOTE | 2016-10-23 12:51 | CP.PCM.PN ---
Subjective - Date & Time of Evaluation Date of Evaluation: 10/23/16 Time of Evaluation: 12:51 - Subjective Subjective: Gen Sx: Dr Jeffries Pt S&E. GUZMAN. Reports abdominal pain improved. Has mild nausea at times. Passing flatus. Had BM this morning. Denies fevers, chills, sob, chest pain. Objective - Vital Signs/Intake and Output Vital Signs (last 24 hours): Temp Pulse Resp BP Pulse Ox 98.8 F 96 H 20 127/81 97 10/23/16 09:13 10/23/16 09:13 10/23/16 09:13 10/23/16 09:13 10/23/16 09:13 Intake and Output: 10/23/16 10/23/16 06:59 18:59 Intake Total 0 Balance 0 - Medications Medications: Current Medications Famotidine (Pepcid) 20 mg IVP DAILY [facility] Last Admin: 10/23/16 10:47 Dose: 20 mg Hydromorphone HCl (Dilaudid) 1 mg IVP Q4H PRN PRN Reason: Pain, moderate (4-7) Sodium Chloride (Sodium Chloride 0.9%) 1,000 mls @ 150 mls/hr IV .Q6H40M [facility] Last Admin: 10/23/16 05:57 Dose: 150 mls/hr Metronidazole (Flagyl) 500 mg in 100 mls @ 100 mls/hr IVPB Q8 [facility] PRN Reason: Protocol Last Admin: 10/23/16 05:56 Dose: 100 mls/hr Ceftriaxone Sodium (Rocephin 1 Gram Ivpb) 1 gm in 100 mls @ 100 mls/hr IVPB DAILY [facility] PRN Reason: Protocol Last Admin: 10/23/16 10:47 Dose: 100 mls/hr Insulin Human Regular (Humulin R Low) 0 units SC ACHS [facility] PRN Reason: Protocol Last Admin: 10/23/16 12:26 Dose: Not Given Losartan Potassium (Cozaar) 100 mg PO DAILY [facility] Last Admin: 10/23/16 10:45 Dose: 100 mg - Labs Labs: 10/23/16 08:10 10/23/16 08:10 PT 11.3 Seconds (9.9-11.8) 10/22/16 18:05 INR 1.05 (0.93-1.08) 10/22/16 18:05 APTT 28.8 Seconds (23.7-30.8) 10/22/16 18:05 - Constitutional Appears: Non-toxic, No Acute Distress - Head Exam Head Exam: NORMAL INSPECTION - Respiratory Exam Respiratory Exam: absent: Accessory Muscle Use, Respiratory Distress - Cardiovascular Exam Cardiovascular Exam: REGULAR RHYTHM. absent: Tachycardia - GI/Abdominal Exam GI & Abdominal Exam: Soft, Tenderness (LLQ but pt states improved). absent: Distended, Firm, Guarding, Rigid - Extremities Exam Extremities Exam: absent: Calf Tenderness, Pedal Edema - Neurological Exam Neurological Exam: Alert, Awake, Oriented x3 - Psychiatric Exam Psychiatric exam: Normal Affect, Normal Mood - Skin Skin Exam: Normal Color, Warm Assessment and Plan - Assessment and Plan (Free Text) Assessment: 51F with acute diverticulitis Plan: NPO IV fluids continue abx pt has potential to develop intra-abdominal abscess d/w Dr Nesha Nevarez, PGY2
[2016-10-24] MEDS: Insulin Reg-LOW-Coverage SC SCH (02:19)
[2016-10-24] MEDS: Sodium Chloride 0.9% 1,000 ML IV SCH (02:20)
--- NOTE | 2016-10-24 03:09 | CON ---
DATE: 10/23/2016 ADDENDUM: This is an addendum to the GI consultation report dictated by Tory Robertson NP. PHYSICAL EXAMINATION: The patient does have significant tenderness in the left lower quadrant. DIAGNOSTIC IMAGING: CT scan was reviewed, showed evidence of contained microperforation. IMPRESSION: The patient never had a similar episode in the past. Never had a colonoscopy before. PLAN: The plan is to continue the antibiotics and will reduce the dose of ceftriaxone to 1 gram daily along with the Flagyl 500 mg q. 8 hourly. The patient did have elevated liver enzymes, transaminases. The etiology is unclear. Had an ultrasound scan of the abdomen and showed common bile duct measuring only 4 mm, status post cholecystectomy. Will followup the LFTs. We will request for hepatitis serology, hepatitis profile. We will consider changing the antibiotics from ceftriaxone to cefepime and Flagyl. Thank you very much for allowing us to participate in the care of the patient. Jesus Crouch MD cc: [id number] TT: 10/24/2016 03:09:03 Confirmation # [id number] Dictation # [id number] mn GEOVANNY
[2016-10-24] MEDS: metroNIDAZOLE IV 500 mg/100 ml 500 MG/100 ML BAG IVPB SCH (05:41)
--- NOTE | 2016-10-24 06:17 | CP.PCM.PN ---
Subjective - Date & Time of Evaluation Date of Evaluation: 10/24/16 Time of Evaluation: 06:14 - Subjective Subjective: Gen Sx: Dr Jeffries Pt S&E. NAEO. Resting comfortably. Denies abdominal pain at this time. Denies N/V, F/C. Passing flatus. Has not had BM since admission. Currently NPO Objective - Vital Signs/Intake and Output Vital Signs (last 24 hours): Temp Pulse Resp BP Pulse Ox 98.6 F 99 H 16 126/85 100 10/23/16 16:00 10/23/16 16:00 10/23/16 16:00 10/23/16 16:00 10/23/16 16:00 Intake and Output: 10/23/16 10/24/16 18:59 06:59 Intake Total 1250 0 Balance 1250 0 - Medications Medications: Current Medications Famotidine (Pepcid) 20 mg IVP DAILY [facility] Last Admin: 10/23/16 10:47 Dose: 20 mg Hydromorphone HCl (Dilaudid) 1 mg IVP Q4H PRN PRN Reason: Pain, moderate (4-7) Sodium Chloride (Sodium Chloride 0.9%) 1,000 mls @ 150 mls/hr IV .Q6H40M [facility] Last Admin: 10/24/16 02:20 Dose: 150 mls/hr Metronidazole (Flagyl) 500 mg in 100 mls @ 100 mls/hr IVPB Q8 [facility] PRN Reason: Protocol Last Admin: 10/24/16 05:41 Dose: 100 mls/hr Ceftriaxone Sodium (Rocephin 1 Gram Ivpb) 1 gm in 100 mls @ 100 mls/hr IVPB DAILY [facility] PRN Reason: Protocol Last Admin: 10/23/16 10:47 Dose: 100 mls/hr Insulin Human Regular (Humulin R Low) 0 units SC ACHS [facility] PRN Reason: Protocol Last Admin: 10/24/16 02:19 Dose: Not Given Losartan Potassium (Cozaar) 100 mg PO DAILY [facility] Last Admin: 10/23/16 10:45 Dose: 100 mg - Labs Labs: 10/23/16 08:10 10/23/16 08:10 PT 11.3 Seconds (9.9-11.8) 10/22/16 18:05 INR 1.05 (0.93-1.08) 10/22/16 18:05 APTT 28.8 Seconds (23.7-30.8) 10/22/16 18:05 - Constitutional Appears: Non-toxic, No Acute Distress - Head Exam Head Exam: NORMOCEPHALIC - Respiratory Exam Respiratory Exam: absent: Accessory Muscle Use, Respiratory Distress - Cardiovascular Exam Cardiovascular Exam: REGULAR RHYTHM - GI/Abdominal Exam GI & Abdominal Exam: Soft. absent: Distended, Firm, Guarding, Rigid, Tenderness , Hernia, Mass - Rectal Exam Rectal Exam: absent: Deferred - Extremities Exam Extremities Exam: absent: Pedal Edema - Neurological Exam Neurological Exam: Alert, Awake, Oriented x3 - Psychiatric Exam Psychiatric exam: Normal Affect, Normal Mood - Skin Skin Exam: Normal Color, Warm Assessment and Plan - Assessment and Plan (Free Text) Assessment: 51F with diverticulitis; resolving Plan: Pt condition improved would recommend repeat CT prior to discharge to confirm no abscess has formed will f/u labs this morning will consider placing pt on CLD pt should be d/c with 2 weeks of low-residue diet to avoid exacerbation of condition will d/w Dr Nesha Nevarez, DO, PGY2
[2016-10-24 07:32] LABS: ADD MANUAL DIFF? NO
[2016-10-24 07:41] LABS: BASO # 0.02 K/mm3 (0.0-2.0); BASO % 0.3 % (0.0-3.0); EOS # 0.1 (0.0-0.7); EOS % 1.9 % (1.5-5.0); GRAN # 4.05 (1.4-6.5); GRAN % 58.1 % (50.0-68.0); HEMATOCRIT 39.6 % (36.0-48.0); LYMPH # 2.4 (1.2-3.4); LYMPH % 33.7 % (22.0-35.0); MEAN CELL VOLUME 85.9 fL (80.0-105.0); MEAN CORPUSCULAR HEMOGLOBIN 29.1 pg (25.0-35.0); MEAN CORPUSCULAR HGB CONC 33.8 g/dl (31.0-37.0); MEAN PLATELET VOLUME 9.7 fl (7.0-11.0); MONO # 0.4 (0.1-0.6); PLATELET COUNT 291 10^3/uL (120.0-450.0); RED CELL DISTRIBUTION WIDTH 12.4 % (11.5-14.5)
[2016-10-24 07:55] LABS: ALB/GLOB RATIO 1.2 (1.1-1.8); ALKALINE PHOSPHATASE 186 U/L (38-133); ALT/SGPT 337 U/L (7-56); AST/SGOT 132 U/L (15-39); BILIRUBIN,TOTAL 0.8 mg/dL (0.2-1.3); BLOOD UREA NITROGEN 9 mg/dL (7-21); CALCIUM 9.4 mg/dL (8.4-10.5); CARBON DIOXIDE 22 mmol/L (21-33); CHLORIDE 106 mmol/L (95-110); GFR AFRICAN-AMERICAN > 60; GLUCOSE,RANDOM 116 mg/dL (70-110); POTASSIUM 4.3 mmol/L (3.6-5.0); SODIUM 140 mmol/L (132-148); TOTAL PROTEIN 7.7 g/dL (5.8-8.3)
[2016-10-24 09:37] VITALS: BP 112/73; PULSE 90; RESP 18; TEMP 97.6; O2SAT 99
--- NOTE | 2016-10-24 13:15 | CP.PCM.PN ---
<GiovanniLesly - Last Filed: 10/24/16 13:29> Subjective - Date & Time of Evaluation Date of Evaluation: 10/24/16 Time of Evaluation: 13:30 - Subjective Subjective: GI for Dr. Crouch Pt s&e. GARY. Pt tolerating CLD. Denies F/C/N/V/D/CP/SOB. flatus. No BM. Pain controlled. Objective - Vital Signs/Intake and Output Vital Signs (last 24 hours): Temp Pulse Resp BP Pulse Ox 97.6 F 90 18 112/73 99 10/24/16 08:00 10/24/16 08:00 10/24/16 08:00 10/24/16 08:00 10/24/16 08:00 Intake and Output: 10/24/16 10/24/16 06:59 18:59 Intake Total 0 Balance 0 - Medications Medications: Current Medications Famotidine (Pepcid) 20 mg IVP DAILY [facility] Last Admin: 10/23/16 10:47 Dose: 20 mg Hydromorphone HCl (Dilaudid) 1 mg IVP Q4H PRN PRN Reason: Pain, moderate (4-7) Sodium Chloride (Sodium Chloride 0.9%) 1,000 mls @ 150 mls/hr IV .Q6H40M [facility] Last Admin: 10/24/16 02:20 Dose: 150 mls/hr Metronidazole (Flagyl) 500 mg in 100 mls @ 100 mls/hr IVPB Q8 [facility] PRN Reason: Protocol Last Admin: 10/24/16 05:41 Dose: 100 mls/hr Ceftriaxone Sodium (Rocephin 1 Gram Ivpb) 1 gm in 100 mls @ 100 mls/hr IVPB DAILY [facility] PRN Reason: Protocol Last Admin: 10/23/16 10:47 Dose: 100 mls/hr Insulin Human Regular (Humulin R Low) 0 units SC ACHS [facility] PRN Reason: Protocol Last Admin: 10/24/16 02:19 Dose: Not Given Losartan Potassium (Cozaar) 100 mg PO DAILY [facility] Last Admin: 10/23/16 10:45 Dose: 100 mg - Labs Labs: 10/24/16 07:30 10/24/16 07:30 PT 11.3 Seconds (9.9-11.8) 05/23/17 18:05 INR 1.05 (0.93-1.08) 10/22/16 18:05 APTT 28.8 Seconds (23.7-30.8) 10/22/16 18:05 - Constitutional Appears: No Acute Distress - Head Exam Head Exam: ATRAUMATIC, NORMAL INSPECTION, NORMOCEPHALIC - Eye Exam Eye Exam: EOMI, Normal appearance, PERRL Pupil Exam: NORMAL ACCOMODATION, PERRL - ENT Exam ENT Exam: Mucous Membranes Moist, Normal Exam - Neck Exam Neck Exam: Full ROM, Normal Inspection. absent: Lymphadenopathy - Respiratory Exam Respiratory Exam: Clear to Ausculation Bilateral, NORMAL BREATHING PATTERN - Cardiovascular Exam Cardiovascular Exam: REGULAR RHYTHM, +S1, +S2. absent: Murmur - GI/Abdominal Exam GI & Abdominal Exam: Soft. absent: Distended, Firm, Guarding, Rigid, Tenderness - Extremities Exam Extremities Exam: Full ROM, Normal Capillary Refill, Normal Inspection. absent : Joint Swelling, Pedal Edema - Back Exam Back Exam: NORMAL INSPECTION - Neurological Exam Neurological Exam: Alert, Awake, CN II-XII Intact, Normal Gait, Oriented x3 - Psychiatric Exam Psychiatric exam: Normal Affect, Normal Mood - Skin Skin Exam: Dry, Intact, Normal Color, Warm Assessment and Plan - Assessment and Plan (Free Text) Assessment: Acute diverticulitits: resolving -Advance diet as tolerated. -Follow up with Dr. Crouch in 6-8weeks to schedule colonoscopy -ABX -Continue low residual diet : low fiber diet next [address] Crouch <Jesus Crouch V - Last Filed: 12/12/16 17:39> Objective - Vital Signs/Intake and Output Vital Signs (last 24 hours): Temp Pulse Resp BP Pulse Ox 97.6 F 90 18 112/73 99 10/24/16 08:00 10/24/16 08:00 10/24/16 08:00 10/24/16 08:00 10/24/16 08:00 - Labs Labs: 10/24/16 07:30 10/24/16 07:30 PT 11.3 Seconds (9.9-11.8) 10/22/16 18:05 INR 1.05 (0.93-1.08) 10/22/16 18:05 APTT 28.8 Seconds (23.7-30.8) 10/22/16 18:05 Assessment and Plan - Assessment and Plan (Free Text) Assessment: Addendum note to the progress GI note of Dr. Davila, chart mental status reviewed. Agree with the recommendation as discussed above.
--- NOTE | 2016-10-24 14:53 | CP.PCM.DIS ---
<BereniceCaridad - Last Filed: 10/29/16 16:02> Provider - Provider Date of Admission: 10/22/16 22:21 Attending physician: Prakash Hollis MD Consults: Gi and surgery Time Spent in preparation of Discharge (in minutes): 45 Diagnosis - Discharge Diagnosis (1) Diverticulitis Status: Acute (2) Hypertension Status: Chronic (3) Diabetes Status: Chronic (4) Transaminitis Status: Acute Hospital Course - Lab Results Lab Results: Most Recent Lab Values WBC 7.0 10^3/ul (4.5-11.0) 10/24/16 07:30 RBC 4.61 10^6/uL (3.5-6.1) 10/24/16 07:30 Hgb 13.4 gm/dL (12.0-16.0) 10/24/16 07:30 Hct 39.6 % (36.0-48.0) 10/24/16 07:30 MCV 85.9 fL (80.0-105.0) 10/24/16 07:30 MCH 29.1 pg (25.0-35.0) 10/24/16 07:30 MCHC 33.8 g/dl (31.0-37.0) 10/24/16 07:30 RDW 12.4 % (11.5-14.5) 10/24/16 07:30 Plt Count 291 10^3/uL (120.0-450.0) 10/24/16 07:30 MPV 9.7 fl (7.0-11.0) 10/24/16 07:30 Gran % 58.1 % (50.0-68.0) 10/24/16 07:30 Lymph % (Auto) 33.7 % (22.0-35.0) 10/24/16 07:30 Republic % (Auto) 6.0 % (1.0-6.0) 10/24/16 07:30 Eos % (Auto) 1.9 % (1.5-5.0) 10/24/16 07:30 Baso % (Auto) 0.3 % (0.0-3.0) 10/24/16 07:30 Gran # 4.05 (1.4-6.5) 10/24/16 07:30 Lymph # 2.4 (1.2-3.4) 10/24/16 07:30 Republic # 0.4 (0.1-0.6) 10/24/16 07:30 Eos # 0.1 (0.0-0.7) 10/24/16 07:30 Baso # 0.02 K/mm3 (0.0-2.0) 10/24/16 07:30 PT 11.3 Seconds (9.9-11.8) 10/22/16 18:05 INR 1.05 (0.93-1.08) 10/22/16 18:05 APTT 28.8 Seconds (23.7-30.8) 10/22/16 18:05 Sodium 140 mmol/L (132-148) 10/24/16 07:30 Potassium 4.3 mmol/L (3.6-5.0) 10/24/16 07:30 Chloride 106 mmol/L (95-110) 10/24/16 07:30 Carbon Dioxide 22 mmol/L (21-33) 10/24/16 07:30 Anion Gap 16 (10-20) 10/24/16 07:30 BUN 9 mg/dL (7-21) 10/24/16 07:30 Creatinine 0.6 mg/dL (0.5-1.4) 10/24/16 07:30 Est GFR ( Amer) > 60 10/24/16 07:30 Est GFR (Non-Af Amer) > 60 10/24/16 07:30 POC Glucose (mg/dL) 149 mg/dL (65-110) H 10/24/16 11:33 Random Glucose 116 mg/dL (70-110) H 10/24/16 07:30 Calcium 9.4 mg/dL (8.4-10.5) 10/24/16 07:30 Total Bilirubin 0.8 mg/dL (0.2-1.3) 10/24/16 07:30 AST 132 U/L (15-39) H 10/24/16 07:30 ALT 337 U/L (7-56) H 10/24/16 07:30 Alkaline Phosphatase 186 U/L (38-133) H 10/24/16 07:30 Total Protein 7.7 g/dL (5.8-8.3) 10/24/16 07:30 Albumin 4.1 g/dL (3.0-4.8) 10/24/16 07:30 Globulin 3.5 gm/dL 10/24/16 07:30 Albumin/Globulin Ratio 1.2 (1.1-1.8) 10/24/16 07:30 Lipase 51 U/L (23-300) 10/22/16 18:05 Urine Color Yellow (YELLOW) 10/22/16 19: Urine Appearance Sl cloudy (CLEAR) 10/22/16 19: Urine pH 7.0 (4.7-8.0) 10/22/16 19: Ur Specific Oak[place] <= 1.005 (1.005-1.035) 10/22/16 19: Urine Protein Negative mg/dL (<30 mg/dL) 10/22/16 19: Urine Glucose (UA) 100 mg/dL (NEGATIVE) H 10/22/16 19: Urine Ketones 15 mg/dL (NEGATIVE) H 10/22/16 19: Urine Blood Negative (NEGATIVE) 10/22/16 19: Urine Nitrate Negative (NEGATIVE) 10/22/16 19: Urine Bilirubin Negative (NEGATIVE) 10/22/16 19: Urine Urobilinogen 0.2 E.U./dL (<1 E.U./dL) 10/22/16 19:29 Ur Leukocyte Esterase Trace Mahin/uL (NEGATIVE) H 10/22/16 19:29 Urine RBC 0 - 2 /hpf (0-2) 10/22/16 19:29 Urine WBC 1 - 3 /hpf (0-6) 10/22/16 19:29 Ur Epithelial Cells 1 - 3 /hpf (0-5) 10/22/16 19:29 Hepatitis A IgM Ab Negative (NEGATIVE) 10/24/16 07:30 Hep Bs Antigen Negative (NEGATIVE) 10/24/16 07:30 Hep B Core IgM Ab Negative (NEGATIVE) 10/24/16 07:30 Hepatitis C Antibody Negative (NEGATIVE) 10/24/16 07:30 - Hospital Course Hospital Course: Patient is a 51 y/o F with PMH of HTN, DM, migraine headaches presented with LLQ abdominal pain. Basic labs were normal, patient was afebrile, but was tachycardic. CT revealed descending colon diverticulitis with perforation preliminary read. Upon reviewing the images with GI and Dr Celaya, it was noted patient has no perforation, just diverticulitis. Patient was started on Rocephin and flagyl, IVF, NPO. In the next AM, patient' s LFT trended up, abdominal u/s was normal, revealed h/o cholecystectomy, hep panel was normal, and tachycardia also resolved. Patient's abdominal pain resolved. Patient reported no N/V/D. Diet was advanced to liquid diet. Patient insisted on going home, and was requesting to sign out AMA. Decision was made to discharge patient, however she will have to follow up with Dr Osei in the office in 1 week. Patient also need to follow up with gi for monitoring of transaminitis and colonoscopy. Patient verbalized understanding the risk of benefit of wanting to leave today, including worsening of the abdominal pain, prompting return tot he hospital, bowel perforation, sepsis and septic shock. Patient will go home with cipro and flagyl for 7 days. Patient was advised to eat low fiber food for at least 7 more days. - Date & Time of H&P Date of H&P: 10/23/16 Time of H&P: 03:14 Discharge Exam - Head Exam Head Exam: ATRAUMATIC, NORMAL INSPECTION, NORMOCEPHALIC - Eye Exam Eye Exam: EOMI, Normal appearance, PERRL. absent: Scleral icterus - ENT Exam ENT Exam: Mucous Membranes Moist - Neck Exam Neck exam: Normal Inspection - Respiratory Exam Respiratory Exam: Clear to PA & Lateral, NORMAL BREATHING PATTERN, UNREMARKABLE. absent: Rales, Rhonchi, Wheezes, Respiratory Distress, Stridor - Cardiovascular Exam Cardiovascular Exam: REGULAR RHYTHM, +S1, +S2. absent: Systolic Murmur - GI/Abdominal Exam GI & Abdominal Exam: Normal Bowel Sounds, Unremarkable. absent: Distended, Firm , Guarding, Rigid, Soft, Tenderness - Extremities Exam Extremities exam: normal inspection - Back Exam Back exam: NORMAL INSPECTION - Neurological Exam Neurological exam: Alert, Oriented x3 - Psychiatric Exam Psychiatric exam: Normal Affect, Normal Mood - Skin Skin Exam: Dry, Intact, Normal Color, Warm Discharge Plan - Discharge Medications Prescriptions: Ciprofloxacin [Cipro] 500 mg PO Q12 #14 tab metroNIDAZOLE [Flagyl] 500 mg PO Q8 #21 tab - Follow Up Plan Condition: FAIR Disposition: HOME/ ROUTINE Patient education suggested?: Yes Additional Instructions: Follow up with GI for possible colonoscopy as outpatient. Take it easy when it come to eating , eat liquids today, then soft food, with low fiber residue tomorrow for 1-2 weeks Follow up with dr Osei in 1 week Take the antibiotics for 7 days - cipro and flagyl . Referrals: Chepe Osei MD [Staff Provider] - Jesus Crouch MD [Medical Doctor] - <Chepe Osei - Last Filed: 11/15/16 18:58> Provider - Provider Date of Admission: 10/22/16 22:21 Attending physician: Prakash Hollis MD Hospital Course - Lab Results Lab Results: Most Recent Lab Values WBC 7.0 10^3/ul (4.5-11.0) 10/24/16 07:30 RBC 4.61 10^6/uL (3.5-6.1) 10/24/16 07:30 Hgb 13.4 gm/dL (12.0-16.0) 10/24/16 07:30 Hct 39.6 % (36.0-48.0) 10/24/16 07:30 MCV 85.9 fL (80.0-105.0) 10/24/16 07:30 MCH 29.1 pg (25.0-35.0) 10/24/16 07:30 MCHC 33.8 g/dl (31.0-37.0) 10/24/16 07:30 RDW 12.4 % (11.5-14.5) 10/24/16 07:30 Plt Count 291 10^3/uL (120.0-450.0) 10/24/16 07:30 MPV 9.7 fl (7.0-11.0) 10/24/16 07:30 Gran % 58.1 % (50.0-68.0) 10/24/16 07:30 Lymph % (Auto) 33.7 % (22.0-35.0) 10/24/16 07:30 Republic % (Auto) 6.0 % (1.0-6.0) 10/24/16 07:30 Eos % (Auto) 1.9 % (1.5-5.0) 10/24/16 07:30 Baso % (Auto) 0.3 % (0.0-3.0) 10/24/16 07:30 Gran # 4.05 (1.4-6.5) 10/24/16 07:30 Lymph # 2.4 (1.2-3.4) 10/24/16 07:30 Republic # 0.4 (0.1-0.6) 10/24/16 07:30 Eos # 0.1 (0.0-0.7) 10/24/16 07:30 Baso # 0.02 K/mm3 (0.0-2.0) 10/24/16 07:30 PT 11.3 Seconds (9.9-11.8) 10/22/16 18:05 INR 1.05 (0.93-1.08) 10/22/16 18:05 APTT 28.8 Seconds (23.7-30.8) 10/22/16 18:05 Sodium 140 mmol/L (132-148) 10/24/16 07:30 Potassium 4.3 mmol/L (3.6-5.0) 10/24/16 07:30 Chloride 106 mmol/L (95-110) 10/24/16 07:30 Carbon Dioxide 22 mmol/L (21-33) 10/24/16 07:30 Anion Gap 16 (10-20) 10/24/16 07:30 BUN 9 mg/dL (7-21) 10/24/16 07:30 Creatinine 0.6 mg/dL (0.5-1.4) 10/24/16 07:30 Est GFR ( Amer) > 60 10/24/16 07:30 Est GFR (Non-Af Amer) > 60 10/24/16 07:30 POC Glucose (mg/dL) 149 mg/dL (65-110) H 10/24/16 11:33 Random Glucose 116 mg/dL (70-110) H 10/24/16 07:30 Calcium 9.4 mg/dL (8.4-10.5) 10/24/16 07:30 Total Bilirubin 0.8 mg/dL (0.2-1.3) 10/24/16 07:30 AST 132 U/L (15-39) H 10/24/16 07:30 ALT 337 U/L (7-56) H 10/24/16 07:30 Alkaline Phosphatase 186 U/L (38-133) H 10/24/16 07:30 Total Protein 7.7 g/dL (5.8-8.3) 10/24/16 07:30 Albumin 4.1 g/dL (3.0-4.8) 10/24/16 07:30 Globulin 3.5 gm/dL 10/24/16 07:30 Albumin/Globulin Ratio 1.2 (1.1-1.8) 10/24/16 07:30 Lipase 51 U/L (23-300) 10/22/16 18:05 Urine Color Yellow (YELLOW) 10/22/16 19:29 Urine Appearance Sl cloudy (CLEAR) 10/22/16 19: Urine pH 7.0 (4.7-8.0) 10/22/16 19: Ur Specific [place] <= 1.005 (1.005-1.035) 10/22/16 19: Urine Protein Negative mg/dL (<30 mg/dL) 10/22/16 19: Urine Glucose (UA) 100 mg/dL (NEGATIVE) H 10/22/16 19: Urine Ketones 15 mg/dL (NEGATIVE) H 10/22/16 19:29 Urine Blood Negative (NEGATIVE) 10/22/16 19: Urine Nitrate Negative (NEGATIVE) 10/22/16 19: Urine Bilirubin Negative (NEGATIVE) 10/22/16 19: Urine Urobilinogen 0.2 E.U./dL (<1 E.U./dL) 10/22/16 19:29 Ur Leukocyte Esterase Trace Mahin/uL (NEGATIVE) H 10/22/16 19:29 Urine RBC 0 - 2 /hpf (0-2) 10/22/16 19: Urine WBC 1 - 3 /hpf (0-6) 10/22/16 19:29 Ur Epithelial Cells 1 - 3 /hpf (0-5) 10/22/16 19:29 Hepatitis A IgM Ab Negative (NEGATIVE) 10/24/16 07:30 Hep Bs Antigen Negative (NEGATIVE) 10/24/16 07:30 Hep B Core IgM Ab Negative (NEGATIVE) 10/24/16 07:30 Hepatitis C Antibody Negative (NEGATIVE) 10/24/16 07:30 Attending/Attestation - Attestation I have personally seen and examined this patient.: Yes I have fully participated in the care of the patient.: Yes I have reviewed all pertinent clinical information, including history, physical exam and plan: Yes Notes (Text): 11/15/16 18:58 Medical record note made by the resident after discussion with my direction and input after the patient was personally seen and examined by me. I have reviewed the chart and agree that the record accurately reflects by personal performance of the history, physical exam, data review, and medical decision-making, in the course for the patient. I have also personally directed the plan of care.
== END 2016-10-24 15:06 | disposition home or self-care (01) | DRG 392 ==
LOC: ED 17:10 → ERH 22:21 → 5RSO 10-23 00:12
PROVIDERS: ADMIT Internal Medicine; ATTEND Internal Medicine
DX: K57.20 Diverticulitis of large intestine with perforation and abscess without bleeding (principal); I10 Essential (primary) hypertension; E10.9 Type 1 diabetes mellitus without complications; G43.909 Migraine, unspecified, not intractable, without status migrainosus; K59.00 Constipation, unspecified; Z90.49 Acquired absence of other specified parts of digestive tract

== ENCOUNTER 2017-09-22 14:03 | Emergency (ER) | payer OTHER, BC ==
[2017-09-22 14:28] VITALS: BP 149/88; PULSE 84; RESP 18; TEMP 98.3; O2SAT 99; BMI 31.0
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
== END 2017-09-22 15:17 | disposition home or self-care (01) ==
LOC: ED 14:03
DX: M25.561 Pain in right knee (principal); S30.811A Abrasion of abdominal wall, initial encounter; V47.5XXA Car driver injured in collision with fixed or stationary object in traffic accident, initial encounter; Y92.410 Unspecified street and highway as the place of occurrence of the external cause